=== PATIENT | male | born 2005 | race African-American/Black ===

== ENCOUNTER 2025-03-28 00:50 | Emergency (ER) | payer OTHER, SELFPAY ==
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
[2025-03-28 00:55] VITALS: BP 139/70; PULSE 60; RESP 16; TEMP 36.9; O2SAT 100
[2025-03-28 01:29] VITALS: BP 121/53; PULSE 55; RESP 17; TEMP 36.4; O2SAT 100
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
== END 2025-03-28 02:04 | disposition home or self-care (01) ==
PROVIDERS: Emergency Provider Registered Nurse
DX: S06.0X0A Concussion without loss of consciousness, initial encounter (principal); S13.4XXA Sprain of ligaments of cervical spine, initial encounter; V43.52XA Car driver injured in collision with other type car in traffic accident, initial encounter
CPT/HCPCS: 70450; 72125; 99284